=== PATIENT | female | born 1940 | race Caucasian/White ===

== ENCOUNTER → 2018-02-06 | Outpatient (CLI) | payer OTHER | END | disposition home or self-care (01) | LOC: RAD 10:31 | PROVIDERS: ATTEND Internal Medicine | DX: S06.0X9S Concussion with loss of consciousness of unspecified duration, sequela (principal); I67.82 Cerebral ischemia; G31.89 Other specified degenerative diseases of nervous system; J32.9 Chronic sinusitis, unspecified; X58.XXXS Exposure to other specified factors, sequela; Z86.73 Personal history of transient ischemic attack (TIA), and cerebral infarction without residual deficits | CPT/HCPCS: 70450 ==

== ENCOUNTER → 2020-06-02 | Outpatient (CLI) | payer OTHER | END | disposition home or self-care (01) | LOC: CFH 11:10 | PROVIDERS: ATTEND Internal Medicine | DX: Z13.820 Encounter for screening for osteoporosis (principal); M85.80 Other specified disorders of bone density and structure, unspecified site; M81.0 Age-related osteoporosis without current pathological fracture | CPT/HCPCS: 77080 ==

== ENCOUNTER → 2021-02-15 | Outpatient (CLI) | payer OTHER ==
[~2021-02-15] MED LIST: OMNIPAQUE 350 MG/ML, 75ML BOTTLE ONE
== END | disposition home or self-care (01) ==
LOC: CFH 13:24
PROVIDERS: ATTEND Internal Medicine
DX: R91.1 Solitary pulmonary nodule (principal); R91.8 Other nonspecific abnormal finding of lung field
CPT/HCPCS: 71260; Q9967